=== PATIENT | female | born 1970 ===

== ENCOUNTER 2018-03-20 11:04 | Outpatient (CLI) | payer OTHER | END 2018-03-20 11:19 | disposition home or self-care (01) | LOC: SONOGRAMA 11:04 → MAMO-SONO 11:15 → SONOGRAMA 11:19 | DX: R92.0 Mammographic microcalcification found on diagnostic imaging of breast (principal); R93.5 Abnormal findings on diagnostic imaging of other abdominal regions, including retroperitoneum ==

== ENCOUNTER 2018-05-16 05:45 | Day surgery (SDC) | payer OTHER ==
[2018-05-16] MEDS ORDERED: NAPROXEN250 MG PO (09:07)
== END 2018-05-16 13:30 | disposition home or self-care (01) ==
LOC: CIR.AMB 05:45
DX: N93.8 Other specified abnormal uterine and vaginal bleeding (principal); R93.89 Abnormal findings on diagnostic imaging of other specified body structures